=== PATIENT | female | born 1950 | race African-American/Black ===

== ENCOUNTER 2016-08-12 17:35 | Emergency (ER) | payer MEDICARE ==
[2016-08-12] MEDS ORDERED: traMADol HCl 50 MG TAB ONE (18:01)
[2016-08-12] MEDS ORDERED: Cephalexin 500 MG CAP ONE (18:02)
[2016-08-12] MEDS ORDERED: cefTRIAXone\\ROCEPHIN 1 GM VIAL ONE (18:02)
[2016-08-12] MEDS ORDERED: Lidocaine 1% 20 ML MDV ONE (18:02)
[2016-08-12] MEDS ORDERED: Naproxen 500 MG TAB ONE (18:02)
== END 2016-08-12 19:25 | disposition home or self-care (01) ==
LOC: MADERS 17:35
DX: K11.8 Other diseases of salivary glands (principal); I10 Essential (primary) hypertension; Z79.82 Long term (current) use of aspirin
CPT/HCPCS: 96372; J0696; J2001

== ENCOUNTER 2017-09-02 20:17 | Emergency (ER) | payer MEDICARE ==
[2017-09-02] MEDS ORDERED: predniSONE 20 MG TAB ONE (20:49)
[2017-09-02] MEDS ORDERED: Amoxicillin/Potassium Clav 875 MG TAB ONE (20:49)
== END 2017-09-02 20:53 | disposition home or self-care (01) ==
LOC: MADERS 20:17
DX: J01.90 Acute sinusitis, unspecified (principal); I10 Essential (primary) hypertension
CPT/HCPCS: 99283; J7506

== ENCOUNTER 2017-10-21 08:20 | Emergency (ER) | payer MEDICARE | END 2017-10-21 09:10 | disposition home or self-care (01) | LOC: MADERS 08:20 | DX: K04.7 Periapical abscess without sinus (principal); K02.9 Dental caries, unspecified; I10 Essential (primary) hypertension; Z79.82 Long term (current) use of aspirin; Z79.899 Other long term (current) drug therapy | CPT/HCPCS: 99282 ==

== ENCOUNTER 2019-04-09 06:40 | Emergency (ER) | payer MEDICARE ==
[2019-04-09] MEDS ORDERED: Ketorolac Tromethamine 30 MG/ML VIAL ONE (07:00)
[2019-04-09 07:04] LABS: Bilirubin Negative (Negative); Blood, Urine Large (Negative); Clarity Clear (Clear); Glucose, Urine (Dipstick) Negative (Negative); Leukocyte Negative (Negative); Nitrite Negative (Negative); Protein, Urine (Dipstick) Negative (Neg-Trace); Urobilinogen 0.2 mg/dL (Less than 2)
[2019-04-09] MEDS ORDERED: Sodium Chloride 0.9% 1,000 ML BAG ONE (07:12)
[2019-04-09 07:25] LABS: #Basophils 0.1 thou/uL (0.0-0.2); #Eosinphils 0.1 thou/uL (0.0-0.7); #Lymphocytes 2.1 thou/uL (1.20-3.40); #Monocytes 0.3 thou/uL (0.11-0.59); #Neutrophils 3.5 thou/uL (1.40-6.50); %Basophils 1.1 % (0.0-1.0); %Eosinophils 1.7 % (0.0-10.0); %Lymphocytes 34.1 % (21.0-51.0); %Monocytes 5.6 % (0.0-10.0); %Neutrophils 57.5 % (42.0-75.0); Hemoglobin 12.2 g/dL (12.0-16.0); Mean Corpuscular HGB CONC 29.5 g/dL (32.0-36.0); Mean Corpuscular Hemoglobin 26.4 pg (27.0-31.0); Mean Corpuscular Volume 89.7 fL (78.0-98.0); Mean Platelet Volume 7.8 fL (7.4-10.4); Platelet Count 222 thou/uL (130-400); RBC Distribution Width 13.9 % (11.5-14.5); Red Blood Cell (RBC) Count 4.63 mill/uL (4.20-5.40)
[2019-04-09 07:33] LABS: Calcium 9.5 mg/dL (7.8-10.44); Chloride 105 mmol/L (98-107); Potassium 3.4 mmol/L (3.5-5.1); Sodium 144 mmol/L (136-145)
[2019-04-09 07:50] LABS: AST (SGOT) 21 U/L (5-34); Albumin 4.4 g/dL (3.4-4.8); Alkaline Phosphatase 80 U/L (40-110); BUN (Urea Nitrogen) 18 mg/dL (9.8-20.1); Bilirubin, Total 0.4 mg/dL (0.2-1.2); Calc. Creatinine Clearance 0 mL/min (70-130); Carbon Dioxide 25 mmol/L (23-31); Estimated GFR-MDRD 61; Globulin 3.2 g/dL (2.4-3.5); Glucose 119 mg/dL (80-115); Protein, Total 7.6 g/dL (6.0-8.3)
--- NOTE | 2019-04-09 07:51 | CT ---
CT Stone Protocol: 04/09/2019 7:00 AM HISTORY: Right flank pain COMPARISON: None. TECHNIQUE: Multiple contiguous axial images were obtained and a CT of the abdomen and pelvis without IV contrast . Coronal and sagittal reformats were performed. FINDINGS: This examination is limited for the evaluation of solid organs and vascular structures due to the lac k of intravenous contrast. Lower Chest: within normal limits. Abdomen: Liver: within normal limits. Bile Ducts: Normal caliber. Gallbladder: No calcified gallstones. Normal caliber wall. Pancreas: within normal limits. Spleen: within normal limits. Adrenals: within normal limits. Kidneys: Moderate right hydronephrosis. No left hydronephrosis. Hypodensities in the hilar region of the left kidney likely represent parapelvic cysts. 2 mm punctate nonobstructing calcification in the right kidney. Pelvis: Reproductive Organs: Calcified uterine fibroids. Ureters: 4 mm distal right ureteral calcification with right hydroureter Bladder: within normal limits. Bowel: Normal caliber. Normal appendix Mesenteric Lymph Nodes: No enlarged mesenteric lymph nodes. Peritoneum: No ascites or free air, no fluid collection. Vessels: Normal caliber aorta Retroperitoneum: within normal limits. Abdominal Wall: within normal limits. Bones: Degenerative changes in the spine. IMPRESSION: 1. Right ureteral calcification with moderate right hydronephrosis 2. Small nonobstructing right renal calcification 3. Fibroid uterus
[2019-04-09 07:58] LABS: Anion Gap 17 mmol/L (10-20)
[2019-04-09 08:03] LABS: Anisocytosis SLIGHT = 6-15 cells (100X) (0-5/hpf); Platelet Morphology Comment Appears Adequate
[2019-04-09 11:21] LABS: ALT (SGPT) 13 U/L (8-55)
== END 2019-04-09 08:30 | disposition home or self-care (01) ==
LOC: MADERS 06:40
DX: N13.2 Hydronephrosis with renal and ureteral calculous obstruction (principal); I10 Essential (primary) hypertension; Z79.899 Other long term (current) drug therapy
CPT/HCPCS: 74176; 80053; 81003; 81015; 85025; 87086; J1885; J7050

== ENCOUNTER 2021-03-07 13:59 | Emergency (ER) | payer MEDICARE ==
[2021-03-07] MEDS ORDERED: Dexamethasone 10 MG/ML VIAL ONE (15:50)
[2021-03-07 16:15] LABS: #Lymphocytes 0.6 thou/uL (1.20-3.40); #Monocytes 0.5 thou/uL (0.11-0.59); %Basophils 0.4 % (0.0-1.0); %Lymphocytes 12.3 % (21.0-51.0); %Monocytes 8.7 % (0.0-10.0); %Neutrophils 78.6 % (42.0-75.0); Hemoglobin 13.1 g/dL (12.0-16.0); Mean Corpuscular HGB CONC 31.3 g/dL (32.0-36.0); Mean Corpuscular Hemoglobin 26.9 pg (27.0-31.0); Mean Corpuscular Volume 86.1 fL (78.0-98.0); Mean Platelet Volume 8.4 fL (7.4-10.4); Platelet Count 217 thou/uL (130-400); RBC Distribution Width 12.3 % (11.5-14.5); Red Blood Cell (RBC) Count 4.88 mill/uL (4.20-5.40); White Blood Cell (WBC) Count 5.1 thou/uL (4.8-10.8)
[2021-03-07 16:29] LABS: ALT (SGPT) 14 U/L (8-55); AST (SGOT) 40 U/L (5-34); Albumin 3.8 g/dL (3.4-4.8); Alkaline Phosphatase 61 U/L (40-110); Anion Gap 21 mmol/L (10-20); BUN (Urea Nitrogen) 27 mg/dL (9.8-20.1); Bilirubin, Total 0.7 mg/dL (0.2-1.2); Calc. Creatinine Clearance 0 mL/min (70-130); Calcium 9.9 mg/dL (7.8-10.44); Carbon Dioxide 28 mmol/L (23-31); Chloride 93 mmol/L (98-107); Globulin 4.3 g/dL (2.4-3.5); Glucose 117 mg/dL (80-115); Magnesium 2.3 mg/dL (1.6-2.6); Protein, Total 8.1 g/dL (5.8-8.1); Sodium 139 mmol/L (136-145)
[2021-03-07] MEDS ORDERED: Potassium Chloride 20 MEQ TAB ONE (17:49)
== END 2021-03-07 18:00 | disposition critical access hospital (66) ==
LOC: MADERS 13:59
DX: U07.1 COVID-19 (principal); E87.6 Hypokalemia; I10 Essential (primary) hypertension; Z79.899 Other long term (current) drug therapy
CPT/HCPCS: 71045; 80053; 83735; 84484; 85025; 93005; J1100; J7620

== ENCOUNTER 2021-03-07 17:46 | Inpatient (IN) | payer MEDICARE ==
[2021-03-07 19:49] VITALS: BMI 33.8
[2021-03-07] MEDS ORDERED: FLU VACC QS2021-22(65YR UP)/PF 240 MCG/0.7 ML SYRINGE IM ONE (20:30)
[2021-03-07] MEDS: Aspirin Chewable 81 MG TAB PO SCH (21:35)
[2021-03-07] MEDS: Ascorbic Acid 500 mg Chewable Tablet PO SCH (21:35)
[2021-03-08] MEDS: Ascorbic Acid 500 mg Chewable Tablet PO SCH ×2 (08:21→19:29)
[2021-03-08] MEDS: Cholecalciferol 1,000 UNITS (25 MCG) TAB PO SCH (08:21)
[2021-03-08] MEDS: Bisoprolol Fumarate 5 MG TAB PO SCH (08:21)
[2021-03-08] MEDS: Aspirin Chewable 81 MG TAB PO SCH ×2 (08:22→19:29)
[2021-03-08] MEDS: Zinc Sulfate 220 MG CAP PO SCH (08:22)
[2021-03-08] MEDS ORDERED: VERAPAMIL 180 MG PO SCH (09:00)
[2021-03-08] MEDS ORDERED: Hydrochlorothiazide 25 MG TAB PO SCH ×2 (09:00)
[2021-03-08] MEDS ORDERED: Dexamethasone 4 MG TAB PO SCH (18:45)
[2021-03-09] MEDS: Dexamethasone 4 MG TAB PO SCH (08:10)
[2021-03-09] MEDS: Aspirin Chewable 81 MG TAB PO SCH (08:12)
[2021-03-09] MEDS: Zinc Sulfate 220 MG CAP PO SCH (08:12)
[2021-03-09] MEDS: Hydrochlorothiazide 25 MG TAB PO SCH (08:12)
[2021-03-09] MEDS: Ascorbic Acid 500 mg Chewable Tablet PO SCH ×2 (08:13→20:20)
[2021-03-09] MEDS: Bisoprolol Fumarate 5 MG TAB PO SCH (08:13)
[2021-03-09] MEDS: Cholecalciferol 1,000 UNITS (25 MCG) TAB PO SCH (08:13)
[2021-03-09] MEDS ORDERED: Sodium Chloride 0.9% 100 ML BAG ONE (11:57)
[2021-03-09] MEDS ORDERED: Iopamidol 370 76% 125 ML VIAL FS ONE (11:57)
[2021-03-09] MEDS ORDERED: Potassium Chloride 20 MEQ TAB PO SCH (14:00)
[2021-03-09 14:16] LABS: Anion Gap 21 mmol/L (10-20); BUN (Urea Nitrogen) 36 mg/dL (9.8-20.1); Calc. Creatinine Clearance 70 mL/min (70-130); Calcium 10.4 mg/dL (7.8-10.44); Carbon Dioxide 25 mmol/L (23-31); Chloride 97 mmol/L (98-107); Glucose 163 mg/dL (80-115); Potassium 3.5 mmol/L (3.5-5.1); Sodium 139 mmol/L (136-145)
[2021-03-09] MEDS: Potassium Chloride 20 MEQ TAB PO SCH (17:42)
[2021-03-09] MEDS ORDERED: Enoxaparin Sodium 40 MG/0.4 ML SYRINGE SC SCH (17:45)
[2021-03-09 18:21] LABS: #Lymphocytes 0.7 thou/uL (1.20-3.40); #Monocytes 0.4 thou/uL (0.11-0.59); %Basophils 0.3 % (0.0-1.0); %Lymphocytes 8.8 % (21.0-51.0); %Monocytes 5.1 % (0.0-10.0); %Neutrophils 85.8 % (42.0-75.0); Hemoglobin 13.8 g/dL (12.0-16.0); Mean Corpuscular HGB CONC 31.2 g/dL (32.0-36.0); Mean Corpuscular Hemoglobin 27.1 pg (27.0-31.0); Mean Corpuscular Volume 86.8 fL (78.0-98.0); Mean Platelet Volume 7.6 fL (7.4-10.4); Platelet Count 346 thou/uL (130-400); RBC Distribution Width 12.8 % (11.5-14.5); Red Blood Cell (RBC) Count 5.11 mill/uL (4.20-5.40); White Blood Cell (WBC) Count 8.1 thou/uL (4.8-10.8)
[2021-03-09] MEDS ORDERED: Azithromycin 250 MG TAB PO SCH (18:45)
[2021-03-09] MEDS: Cefdinir 300 MG CAP PO SCH (20:20)
[2021-03-10] MEDS: Dexamethasone 4 MG TAB PO SCH (08:40)
[2021-03-10] MEDS: Hydrochlorothiazide 25 MG TAB PO SCH (08:40)
[2021-03-10] MEDS: Zinc Sulfate 220 MG CAP PO SCH (08:41)
[2021-03-10] MEDS: Cefdinir 300 MG CAP PO SCH (08:41)
[2021-03-10] MEDS: Potassium Chloride 20 MEQ TAB PO SCH (08:41)
[2021-03-10] MEDS: Ascorbic Acid 500 mg Chewable Tablet PO SCH (08:41)
[2021-03-10] MEDS: Cholecalciferol 1,000 UNITS (25 MCG) TAB PO SCH (08:42)
[2021-03-10] MEDS: Bisoprolol Fumarate 5 MG TAB PO SCH (08:42)
[2021-03-10] MEDS ORDERED: Aspirin 81 mg Enteric Coated Tablet PO SCH (09:00)
[2021-03-10] MEDS ORDERED: Azithromycin 250 MG TAB PO SCH (09:00)
[2021-03-10 09:34] VITALS: TEMP 97
[2021-03-10 12:53] VITALS: BP 131/63
== END 2021-03-10 14:28 | disposition swing bed (61) | DRG 947 ==
LOC: MADMS 17:46 → UNDOADMIN 17:46 → MADMS 17:52 → UNDODISIN 03-10 14:28
PROVIDERS: ADMIT Family Medicine; ATTEND Family Medicine
DX: R53.1 Weakness (principal); U07.1 COVID-19; J96.01 Acute respiratory failure with hypoxia; J12.82 Pneumonia due to coronavirus disease 2019; E66.9 Obesity, unspecified; I11.9 Hypertensive heart disease without heart failure; E87.6 Hypokalemia; D64.9 Anemia, unspecified; D69.6 Thrombocytopenia, unspecified; Z99.81 Dependence on supplemental oxygen; Z88.5 Allergy status to narcotic agent; Z79.82 Long term (current) use of aspirin; Z79.899 Other long term (current) drug therapy; Z68.33 Body mass index [BMI] 33.0-33.9, adult
CPT/HCPCS: 36415; 71045; 71275; 80048; 80053; 82728; 83735; 84484; 85025; 85379; 86140; 93005; 96374; J1100; J1650; J3490; J7620; J8540; Q9967

== ENCOUNTER 2021-03-10 12:00 | Inpatient (IN) | payer MEDICARE ==
[2021-03-10] MEDS ORDERED: FLU VACC QS2021-22(65YR UP)/PF 240 MCG/0.7 ML SYRINGE IM ONE (16:30)
[2021-03-10] MEDS: Ascorbic Acid 500 mg Chewable Tablet PO SCH (20:57)
[2021-03-10] MEDS: Enoxaparin Sodium 40 MG/0.4 ML SYRINGE SC SCH (20:57)
[2021-03-10] MEDS: Cefdinir 300 MG CAP PO SCH (20:57)
[2021-03-11 05:25] LABS: #Basophils 0.1 thou/uL (0.0-0.2); #Lymphocytes 1.1 thou/uL (1.20-3.40); #Monocytes 0.6 thou/uL (0.11-0.59); #Neutrophils 6.3 thou/uL (1.40-6.50); %Basophils 0.7 % (0.0-1.0); %Lymphocytes 13.4 % (21.0-51.0); %Neutrophils 78.9 % (42.0-75.0); Hemoglobin 13.4 g/dL (12.0-16.0); Mean Corpuscular HGB CONC 31.2 g/dL (32.0-36.0); Mean Corpuscular Hemoglobin 27.1 pg (27.0-31.0); Mean Corpuscular Volume 86.8 fL (78.0-98.0); Mean Platelet Volume 7.7 fL (7.4-10.4); Platelet Count 362 thou/uL (130-400); RBC Distribution Width 12.9 % (11.5-14.5); Red Blood Cell (RBC) Count 4.96 mill/uL (4.20-5.40)
[2021-03-11 05:40] LABS: Anion Gap 15 mmol/L (10-20); BUN (Urea Nitrogen) 30 mg/dL (9.8-20.1); CRP (Inflammatory) 1.97 mg/dL (= or < 0.5); Calc. Creatinine Clearance 75 mL/min (70-130); Carbon Dioxide 25 mmol/L (23-31); Chloride 104 mmol/L (98-107); Glucose 129 mg/dL (80-115); Potassium 4.2 mmol/L (3.5-5.1); Sodium 140 mmol/L (136-145)
[2021-03-11] MEDS: Cholecalciferol 1,000 UNITS (25 MCG) TAB PO SCH (08:40)
[2021-03-11] MEDS: Hydrochlorothiazide 25 MG TAB PO SCH (08:40)
[2021-03-11] MEDS: Cefdinir 300 MG CAP PO SCH ×2 (08:40→20:03)
[2021-03-11] MEDS: Azithromycin 250 MG TAB PO SCH (08:40)
[2021-03-11] MEDS: Dexamethasone 4 MG TAB PO SCH (08:40)
[2021-03-11] MEDS: Aspirin Chewable 81 MG TAB PO SCH (08:41)
[2021-03-11] MEDS: Potassium Chloride 20 MEQ TAB PO SCH (08:41)
[2021-03-11] MEDS: Zinc Sulfate 220 MG CAP PO SCH (08:41)
[2021-03-11] MEDS: Ascorbic Acid 500 mg Chewable Tablet PO SCH ×2 (08:41→20:03)
[2021-03-11] MEDS ORDERED: Non-Formulary Item 1 EACH (Hydrochlorothiazide [Hydrochlorothiazide] 12.5 MG Capsule) PO SCH (09:00)
[2021-03-11] MEDS ORDERED: HYDROCHLOROTHIAZIDE PO SCH (09:00)
[2021-03-11] MEDS ORDERED: Bisoprolol Fumarate 5 MG TAB PO SCH (09:00)
[2021-03-11] MEDS ORDERED: [UNRECOGNIZED DRUG - OTHER] PO SCH (09:00)
[2021-03-11] MEDS ORDERED: BISOPROLOL PO SCH (09:00)
[2021-03-11 12:26] VITALS: BMI 33.5
[2021-03-11] MEDS: Enoxaparin Sodium 40 MG/0.4 ML SYRINGE SC SCH (20:03)
[2021-03-12 07:42] VITALS: BP 124/71; TEMP 98.2
[2021-03-12] MEDS ORDERED: Bisoprolol Fumarate 5 MG TAB PO SCH (09:00)
[2021-03-12] MEDS: Potassium Chloride 20 MEQ TAB PO SCH (09:34)
[2021-03-12] MEDS: Aspirin Chewable 81 MG TAB PO SCH (09:34)
[2021-03-12] MEDS: Dexamethasone 4 MG TAB PO SCH (09:38)
[2021-03-12] MEDS: Cefdinir 300 MG CAP PO SCH (09:38)
[2021-03-12] MEDS: Cholecalciferol 1,000 UNITS (25 MCG) TAB PO SCH (09:38)
[2021-03-12] MEDS: Zinc Sulfate 220 MG CAP PO SCH (09:38)
[2021-03-12] MEDS: Ascorbic Acid 500 mg Chewable Tablet PO SCH (09:39)
[2021-03-12] MEDS: Azithromycin 250 MG TAB PO SCH (09:39)
[2021-03-12] MEDS: Hydrochlorothiazide 25 MG TAB PO SCH (09:40)
== END 2021-03-12 15:50 | disposition home or self-care (01) | DRG 947 ==
LOC: MADMS 12:00
PROVIDERS: ADMIT Family Medicine; ATTEND Family Medicine
DX: R53.83 Other fatigue (principal); J96.01 Acute respiratory failure with hypoxia; E66.9 Obesity, unspecified; I11.9 Hypertensive heart disease without heart failure; R53.81 Other malaise; B94.8 Sequelae of other specified infectious and parasitic diseases; Z99.81 Dependence on supplemental oxygen; Z68.33 Body mass index [BMI] 33.0-33.9, adult; Z88.5 Allergy status to narcotic agent
CPT/HCPCS: 36415; 71045; 71275; 80048; 80053; 82728; 83735; 84484; 85025; 85379; 86140; 93005; 96374; J1100; J1650; J3490; J7620; J8540; Q9967

== ENCOUNTER 2021-06-25 16:59 | Emergency (ER) | payer MEDICARE | END 2021-06-25 18:08 | disposition home or self-care (01) | LOC: MADERS 16:59 | DX: I10 Essential (primary) hypertension (principal); Z79.82 Long term (current) use of aspirin | CPT/HCPCS: 99283 ==

== ENCOUNTER 2022-05-14 18:23 | Emergency (ER) | payer MEDICARE | END 2022-05-14 19:34 | disposition home or self-care (01) | LOC: MADERS 18:23 | DX: H81.10 Benign paroxysmal vertigo, unspecified ear (principal); I10 Essential (primary) hypertension; Z79.82 Long term (current) use of aspirin; Z79.899 Other long term (current) drug therapy | CPT/HCPCS: 99283 ==